=== PATIENT | female | born 1950 | race Caucasian/White ===

== ENCOUNTER → 2017-12-17 | Outpatient (CLI) | payer MEDICARE, OTHER ==
[~2017-12-17] MED LIST: DOXYCYCLINE HY100 M3 PO; GLUCOPHAGE500 MG PO; LEVOTHYROXINE125 MCG PO; LISINOPRIL-HCT1 EAC3 PO; MONTELUKAST SOD10 MG PO; PRAVASTATIN SOD20 MG PO; VITAMIN D250000 UNIT PO
== END | disposition home or self-care (01) ==
LOC: CDC 09:36
DX: S42.241A 4-part fracture of surgical neck of right humerus, initial encounter for closed fracture (principal); M25.511 Pain in right shoulder
CPT/HCPCS: 93000